=== PATIENT | female | born 1995 | race Caucasian/White ===

== ENCOUNTER 2022-07-28 09:14 | Inpatient (IN) | payer OTHER, SELFPAY ==
--- NOTE | ~2022-07-28 | CT_ITS ---
EXAMINATION: CT ABDOMEN AND PELVIS WITH CONTRAST CLINICAL INFORMATION: Right upper quadrant pain. Epigastric pain COMPARISON: Ultrasound abdomen performed earlier today TECHNIQUE: Multidetector volumetric images were obtained from the superior aspect of the liver through the pubic symphysis following administration 85 mL of Omnipaque 350 intravenous contrast. Sagittal and coronal reformatted images were obtained on the technologist's workstation. Oral contrast: No This CT examination was performed using dose optimization techniques as appropriate, variously including the following: *Automated exposure control *Adjustment of mA and/or kV according to patient size (this includes techniques or standardized protocols for targeted exams where dose is matched to indication/reason for exam; i.e. extremities or head) *Use of iterative reconstruction technique DLP: 751 mGy-cm FINDINGS: LUNG BASES: The visualized lung bases are unremarkable. LIVER, GALLBLADDER, AND BILIARY TREE: The liver is normal in size, shape, and and diffusely hypoattenuated. No focal hepatic lesion or biliary ductal dilatation is present. There is mild medial gallbladder wall thickening but ultrasound visualized echogenic calculi is not seen by CT. However there is some hyperdense area in the dependent segment of the gallbladder and may represent sludge or stones. It is best visualized on axial image 23/2 PANCREAS: Unremarkable. SPLEEN: Unremarkable. ADRENAL GLANDS: Unremarkable. KIDNEYS AND URETERS: The kidneys are normal in size, shape, and attenuation. No hydronephrosis, hydroureter, or calculi seen. No perinephric stranding. BLADDER: Unremarkable. GASTROINTESTINAL TRACT: There is scattered stool and gas seen throughout the colon without significant distention. The small bowel loops are normal caliber. Appendix is normal caliber ABDOMINAL WALL: No significant hernia is appreciated. LYMPH NODES: Normal. VASCULAR: Unremarkable. PELVIC VISCERA: Anteverted uterus appears unremarkable. There is no free fluid or adnexal mass. OSSEOUS STRUCTURES: No lytic or sclerotic process seen. CT/CT abdomen pelvis w IV con IMPRESSION: 1. Small radiopaque gallstone with mild wall thickening suspicious for cholecystitis. No pericholecystic fluid collection. 2. Mild hepatic steatosis Fleischner guidelines were followed.
--- NOTE | ~2022-07-28 | US_ITS ---
EXAMINATION: US ABDOMEN COMPLETE CLINICAL INFORMATION: Abdominal pain for 2 days. COMPARISON: Portable chest 03/03/2017 TECHNIQUE: Real-time imaging of the abdominal viscera. FINDINGS: PANCREAS: Obscured by bowel gas. ABDOMINAL AORTA: The proximal, mid, and distal segments are normal in caliber. INFERIOR VENA CAVA: Visualized portions are normal. LIVER: The liver is upper limits of normal size measuring 18.9 cm in length with increased hepatic parenchymal echogenicity suggesting diffuse hepatic steatosis. There is no focal hepatic parenchymal lesion or intrahepatic ductal dilatation. Doppler shows portal flow towards the liver. GALLBLADDER: Gallbladder is distended to 3.5 cm in diameter. The gallbladder wall is upper limits of normal, 3 mm. There is a stone in the neck of the gallbladder measuring 1.8 x 0.8 x 1.2 cm. There may be some sludge in the lumen is well. Sonographic Corley's sign is negative. There is no pericholecystic fluid. COMMON BILE DUCT: Normal in caliber measuring 0.5 cm in diameter. No visible ductal calculus. RIGHT KIDNEY: Normal. No hydronephrosis. No renal calculi or focal parenchymal lesions. The kidney measures 10.6 cm in maximum dimension. LEFT KIDNEY: Normal. No hydronephrosis. No renal calculi or focal parenchymal lesions. The kidney measures 11.1 cm in maximum dimension. SPLEEN: Normal. The spleen measures 9.9 cm in maximum dimension. FREE FLUID: None. US/US abdomen complete IMPRESSION: 1. Gallstone in neck of gallbladder. Gallbladder wall upper normal. No ductal dilatation. 2. Pancreas obscured by bowel gas. 3. Hepatic steatosis. 4. No hydronephrosis.
[2022-07-28 09:17] VITALS: BP 130/78; PULSE 94; RESP 18; TEMP 36.6; O2SAT 98; BMI 34.3
[2022-07-28 09:32] LABS: MANUAL DIFF FLAG NO
[2022-07-28 09:36] LABS: Basophils Percent Auto 0.1 % (0-2); Eosinophils Percent Auto 0.1 % (0-4); Hematocrit 38.6 % (37.0-47.0); Hemoglobin 13.2 g/dl (12.0-16.0); Imm Gran Abs Auto 0.04 X10*3/uL (0.00-0.03); Imm Gran Pct Auto 0.3 % (0.0-0.4); Lymphocytes Absolute Auto 2.4 X10*3/uL (1.2-4.9); Mean Corpuscular HGB Conc 34.2 g/dl (31.0-35.0); Mean Corpuscular Hemoglobin 28.6 pg (27.0-33.0); Mean Corpuscular Volume 83.7 fL (80.0-98.0); Mean Platelet Volume 10.1 fL (9.4-12.3); Monocytes Absolute Auto 0.9 X10*3/uL (0.1-1.2); Monocytes Percent Auto 6.8 % (2-11); Neutrophils Absolute Auto 10.1 x10*3/uL (2.0-8.3); Neutrophils Percent Auto 74.7 % (45-73); Platelet Count 288 X10*3/uL (160-400); Red Blood Count 4.61 X10*6/uL (4.20-5.50); Red Cell Distribution Width 12.3 % (11.0-16.0); White Blood Count 13.5 X10*3/uL (4.8-10.8)
[2022-07-28 09:49] LABS: Anion Gap 17 (12-20); Blood Urea Nitrogen 6 mg/dL (9-16); Calcium 9.5 mg/dL (8.4-10.2); Carbon Dioxide 21 mmol/L (22-29); Chloride 104 mmol/L (96-108); Estimated Glomerular Filt Rate > 60; Glucose Random 105 mg/dL (60-115); Potassium 3.8 mmol/L (3.3-5.1); Sodium 138 mmol/L (135-145)
[2022-07-28] MEDS: Ketorolac Tromethamine 30 MG/ML VIAL IVPUSH (10:20)
[2022-07-28] MEDS: ondansetron HCL 4 MG/2 ML VIAL IVPUSH (10:20)
[2022-07-28] MEDS: 0.9 % Sodium Chloride 1,000 ML 999 ML IVCONT (10:22)
[2022-07-28 10:34] LABS: Alanine Aminotransferase 33 U/L (0-31); Albumin Level 4.2 g/dL (3.5-5.0); Alkaline Phosphatase 71 U/L (39-117); Aspartate Amino Transferase 21 U/L (5-31); Bilirubin Direct 0.2 mg/dL (0.0-0.5); Bilirubin Total 0.6 mg/dL (0.0-1.0); HCG Quantitative < 2 mIU/mL; Lipase 30 U/L (8-78); Magnesium 1.9 mg/dL (1.6-2.6); Total Protein 7.5 g/dL (6.5-8.0)
[2022-07-28 10:52] LABS: Influenza A PCR NEGATIVE (Negative); Influenza B PCR NEGATIVE (Negative); Resp Syncy Virus RNA Qual PCR NEGATIVE (Negative); SARS COV2 PCR INHOUSE NEGATIVE (Negative)
--- NOTE | 2022-07-28 11:10 | ED.ABDPAIN ---
HPI - Abdominal Pain General Chief Complaint: Abdominal Pain Stated Complaint: abd pain Time Seen by Provider: 07/28/22 09:49 Source: patient and family Mode of arrival: ambulatory Limitations: no limitations History of Present Illness HPI narrative: 27yoF with a PMHx of IBS who is presenting to the ER with family at bedside with complaints of nausea/vomiting with epigastric abdominal pain radiating to her left side of her mid back since yesterday worse today. Reports she is unable to keep anything down. She reports this is not feel like her regular IBS. She denies any fevers, dizziness, neck pain/stiffness, sore throat, nasal congestion/rhinorrhea, cough, black or bloody emesis, chest pain or shortness of breath, dysuria, hematuria, abnormal vaginal discharge, black or bloody stools, recent travel or sick contacts, recent antibiotic usage or possible bad food exposures or others with similar symptoms or any other symptoms complaints or concerns at this time. MD elicited complaint: abdominal pain Pertinent past history: other (IBS) Onset (ago): day(s) (2) Pain Consistency: constant Location: epigastric Severity: mild Quality: aching Radiation: back Exacerbating factors: nothing Relieving factors: nothing Associated symptoms: nausea and vomiting Related Data Allergies Allergy/AdvReac Type Severity Reaction Status Date / Time No Known Allergies Allergy Unverified 02/16/20 18:23 [No Known Allergies*] Review of Systems Review of Systems Constitutional : No Fever, No Chills, No Night Sweats, No Fatigue, No Malaise Cardiovascular : No Chest Pain, No SOB Respiratory : No Cough, No Sputum, No Wheezing, No Dyspnea Gastrointestinal : + Nausea, + Vomiting, No Diarrhea, + abdominal Pain, No Hematochezia, No Melena Genitourinary : No irregular bleeding, No Dysuria, No Urinary Frequency, No Hematuria,No Urinary Incontinence, No Urgency, No Flank Pain Musculoskeletal : No joint pain, No Myalgias, No Joint Swelling Skin : No Skin Lesions, No rash Neuro : No Weakness, No Numbness, No Paresthesias, No Loss of Consciousness, No Dizziness, No Headache Heme/Lymph: No Lymphadenopathy Endocrine : No Temperature Intolerance Yes all other systems are reviewed and are negative [facility] Past Medical History Attestation statement: The following information was validated with the patient. Source: old records reviewed, obtained from family and nursing notes reviewed Medical History (Updated 07/28/22 @ 13:12 by Brain Roca MD) Acute cholecystitis Thyroid disease Social History Social History Smoked in Last 30 Days: No Advance Directives: No Advance Directives Information Provided: No Physical Exam ED Vital Signs: Vital Signs - 24 hr 07/28/22 09:17 Temperature 98 F Pulse Rate 94 Respiratory Rate 18 Blood Pressure 130/78 Pulse Oximetry 98 Oxygen Delivery Method Room Air BMI result Body Mass Index 34.3 Vital signs have been reviewed and all within normal limits Appearance: Alert. Oriented X3. No acute distress. Head: Normal external exam. Normocephalic. Eyes: PERRLA. EOMI. Conjunctiva and sclera normal. Eyelids normal. ENT: Pharynx normal. Uvula midline. Moist mucous membranes. No trismus noted. No drooling noted. No muffled voice noted. Neck: Normal inspection. Neck supple. FROM. No adenopathy. No meningeal signs. CVS: Normal heart rate and rhythm. Heart sound normal. No murmurs noted. Pulses normal throughout. Respiratory: No respiratory distress. Painless inspiration. Breath sounds normal. No wheezes/rales/rhonchi noted. Chest nontender. No accessory muscle usage noted or decreased air movement noted. Abdomen: Soft and tenderness palpation to the epigastric area with guarding. Nondistended. No rigidity. Bowel sounds normal in all 4 quadrants. No distention noted. No organomegaly noted. No visible injury noted. No rebound tenderness. Negative Rovsing sign. Negative obturator's sign. Negative psoas sign. Negative Corley sign. Back: No CVA tenderness. Full range of motion noted. Skin: Skin warm and dry. Normal skin color. Normal skin turgor. No rashes/lesions/lacerations noted. Extremities: Extremities exhibit normal range of motion. Extremities nontender. Neuro: Oriented X 3. No motor deficit. No sensory deficit. Reflexes normal. Normal steady gait. CN's II-XII intact bilaterally? Course Course Course Narrative: 9:20am - 27yoF with a PMHx of IBS who is presenting to the ER with family at bedside with complaints of nausea/vomiting with epigastric abdominal pain radiating to her left side of her mid back since yesterday worse today. Presentation consistent with acute epigastric abdominal pain. Differential diagnosis include gastroenteritis. No evidence of acute abdomen at this time. Well-appearing. Low suspicious for acute hepatobiliary disease including acute cholecystitis, acute pancreatitis, PUD, acute infectious processes such as pneumonia, hepatitis, pyelonephritis, atypical appendicitis, vascular catastrophe, bowel obstruction or viscous perforation. Presentation not consistent with other acute emergent causes of abdominal pain at this time. Plan: Labs, UA, COVID/RSV/flu swab an abdominal ultrasound. Provide symptomatic treatment with IV fluids, 4 mg of Zofran and 30 mg of IV Toradol re-evaluate. Reevaluation(s) Reevaluation #1: Labs reviewed - leukocytosis of 13,000. - carbon dioxide 21.- BUN 6. - ALT 33. - Patient negative for COVID/RSV/flu - serum quant negative. - otherwise all other labs are within normal limits. Awaiting UA and abdominal ultrasound will re-evaluate. Time: 11:16 Reevaluation #2: Ultrasound revealed gallstone in the neck of gallbladder. Otherwise no other acute processes. Therefore I discussed this patient with Dr. Roca general surgeon and he recommended a CT scan with IV contrast and CT scan suspicious for acute cholecystitis. Therefore at this time patient will be admitted to Dr. Roca for acute cholecystitis. Patient with at bedside understand agree this plan. Time: 13:12 Medical Decision Making Lab Data MDM Lab Attestation statement: I reviewed the patient's lab results. 07/28/22 09:27 07/28/22 09:27 Labs: Lab Results 07/28/22 07/28/22 07/28/22 Range/Units 09:27 09:27 09:55 WBC 13.5 H (4.8-10.8) X10*3/uL RBC 4.61 (4.20-5.50) X10*6/uL Hgb 13.2 (12.0-16.0) g/dl Hct 38.6 (37.0-47.0) % MCV 83.7 (80.0-98.0) fL MCH 28.6 (27.0-33.0) pg MCHC 34.2 (31.0-35.0) g/dl RDW 12.3 (11.0-16.0) % Plt Count 288 (160-400) X10*3/uL MPV 10.1 (9.4-12.3) fL Immature Gran % (Auto) 0.3 (0.0-0.4) % Neut % (Auto) 74.7 H (45-73) % Lymph % (Auto) 18.0 L (20-40) % [place] % (Auto) 6.8 (2-11) % Eos % (Auto) 0.1 (0-4) % Baso % (Auto) 0.1 (0-2) % Lymph # (Auto) 2.4 (1.2-4.9) X10*3/uL [place] # (Auto) 0.9 (0.1-1.2) X10*3/uL Eos # (Auto) 0.0 (0.0-0.4) X10*3/uL Baso # (Auto) 0.0 (0.0-0.2) X10*3/uL Abs Immat Gran (auto) 0.04 H (0.00-0.03) X10*3/uL Absolute Neuts (auto) 10.1 H (2.0-8.3) x10*3/uL Absolute Nucleated RBC 0.000 (0.0-0.012) X10*3/uL Nucleated RBC % (auto) 0.0 (0.0-0.2) /100WBC Sodium 138 (135-145) mmol/L Potassium 3.8 (3.3-5.1) mmol/L Chloride 104 (96-108) mmol/L Carbon Dioxide 21 L (22-29) mmol/L Anion Gap 17 (12-20) BUN 6 L (9-16) mg/dL Creatinine 0.68 (0.5-1.4) mg/dL Estim Creat Clear Calc 138.0 Estimated GFR > 60 Random Glucose 105 (60-115) mg/dL Calcium 9.5 (8.4-10.2) mg/dL Magnesium 1.9 (1.6-2.6) mg/dL Total Bilirubin 0.6 (0.0-1.0) mg/dL Direct Bilirubin 0.2 (0.0-0.5) mg/dL AST 21 (5-31) U/L ALT 33 H (0-31) U/L Alkaline Phosphatase 71 (39-117) U/L Total Protein 7.5 (6.5-8.0) g/dL Albumin 4.2 (3.5-5.0) g/dL Lipase 30 (8-78) U/L Beta HCG, Quant < 2 mIU/mL Urine Color Urine Appearance Urine pH (5.0-9.0) Ur Specific [place] (1.005-1.025) Urine Protein (Neg-Trace) mg/dL Urine Glucose (UA) (Negative) mg/dL Urine Ketones (Negative) mg/dL Urine Blood (Negative) Urine Nitrite (Negative) Ur Leukocyte Esterase (Negative) Influenza Type A (PCR) NEGATIVE (Negative) Influenza Type B (PCR) NEGATIVE (Negative) RSV RNA Qual (PCR) NEGATIVE (Negative) SARS-CoV-2 RNA (RT-PCR) NEGATIVE (Negative) 07/28/22 Range/Units 11:29 WBC (4.8-10.8) X10*3/uL RBC (4.20-5.50) X10*6/uL Hgb (12.0-16.0) g/dl Hct (37.0-47.0) % MCV (80.0-98.0) fL MCH (27.0-33.0) pg MCHC (31.0-35.0) g/dl RDW (11.0-16.0) % Plt Count (160-400) X10*3/uL MPV (9.4-12.3) fL Immature Gran % (Auto) (0.0-0.4) % Neut % (Auto) (45-73) % Lymph % (Auto) (20-40) % [place] % (Auto) (2-11) % Eos % (Auto) (0-4) % Baso % (Auto) (0-2) % Lymph # (Auto) (1.2-4.9) X10*3/uL [place] # (Auto) (0.1-1.2) X10*3/uL Eos # (Auto) (0.0-0.4) X10*3/uL Baso # (Auto) (0.0-0.2) X10*3/uL Abs Immat Gran (auto) (0.00-0.03) X10*3/uL Absolute Neuts (auto) (2.0-8.3) x10*3/uL Absolute Nucleated RBC (0.0-0.012) X10*3/uL Nucleated RBC % (auto) (0.0-0.2) /100WBC Sodium (135-145) mmol/L Potassium (3.3-5.1) mmol/L Chloride (96-108) mmol/L Carbon Dioxide (22-29) mmol/L Anion Gap (12-20) BUN (9-16) mg/dL Creatinine (0.5-1.4) mg/dL Estim Creat Clear Calc Estimated GFR Random Glucose (60-115) mg/dL Calcium (8.4-10.2) mg/dL Magnesium (1.6-2.6) mg/dL Total Bilirubin (0.0-1.0) mg/dL Direct Bilirubin (0.0-0.5) mg/dL AST (5-31) U/L ALT (0-31) U/L Alkaline Phosphatase (39-117) U/L Total Protein (6.5-8.0) g/dL Albumin (3.5-5.0) g/dL Lipase (8-78) U/L Beta HCG, Quant mIU/mL Urine Color Yellow Urine Appearance Clear Urine pH 6.5 (5.0-9.0) Ur Specific [place] 1.010 (1.005-1.025) Urine Protein Negative (Neg-Trace) mg/dL Urine Glucose (UA) Negative (Negative) mg/dL Urine Ketones Trace (Negative) mg/dL Urine Blood Negative (Negative) Urine Nitrite Negative (Negative) Ur Leukocyte Esterase Negative (Negative) Influenza Type A (PCR) (Negative) Influenza Type B (PCR) (Negative) RSV RNA Qual (PCR) (Negative) SARS-CoV-2 RNA (RT-PCR) (Negative) Independent Interpretation I performed an independent interpretation of an: Ultrasound (I reviewed myself and discussed with patient she understands) and CT Scan (CT scan results reviewed by myself and discussed with patient) Radiology Impression Discussion of test interpretation with radiology: I have reviewed the radiologist's reading. (Discussed the radiology reading with patient) Radiologist Impression: FINDINGS: PANCREAS: Obscured by bowel gas. ABDOMINAL AORTA: The proximal, mid, and distal segments are normal in caliber. INFERIOR VENA CAVA: Visualized portions are normal. LIVER: The liver is upper limits of normal size measuring 18.9 cm in length with increased hepatic parenchymal echogenicity suggesting diffuse hepatic steatosis. There is no focal hepatic parenchymal lesion or intrahepatic ductal dilatation. Doppler shows portal flow towards the liver. GALLBLADDER: Gallbladder is distended to 3.5 cm in diameter. The gallbladder wall is upper limits of normal, 3 mm. There is a stone in the neck of the gallbladder measuring 1.8 x 0.8 x 1.2 cm. There may be some sludge in the lumen is well. Sonographic Corley's sign is negative. There is no pericholecystic fluid. COMMON BILE DUCT: Normal in caliber measuring 0.5 cm in diameter. No visible ductal calculus. RIGHT KIDNEY: Normal. No hydronephrosis. No renal calculi or focal parenchymal lesions. The kidney measures 10.6 cm in maximum dimension. LEFT KIDNEY: Normal. No hydronephrosis. No renal calculi or focal parenchymal lesions. The kidney measures 11.1 cm in maximum dimension. SPLEEN: Normal. The spleen measures 9.9 cm in maximum dimension. FREE FLUID: None. US/US abdomen complete IMPRESSION: 1. Gallstone in neck of gallbladder. Gallbladder wall upper normal. No ductal dilatation. 2. Pancreas obscured by bowel gas. 3. Hepatic steatosis. 4. No hydronephrosis. FINDINGS: LUNG BASES: The visualized lung bases are unremarkable.? LIVER, GALLBLADDER, AND BILIARY TREE: The liver is normal in size, shape, and and diffusely hypoattenuated. No focal hepatic lesion or biliary ductal dilatation is present. There is mild medial gallbladder wall thickening but ultrasound visualized echogenic calculi is not seen by CT. However there is some hyperdense area in the dependent segment of the gallbladder and may represent sludge or stones. It is best visualized on axial image 23/2 PANCREAS: Unremarkable.? SPLEEN: Unremarkable.? ADRENAL GLANDS: Unremarkable.? KIDNEYS AND URETERS: The kidneys are normal in size, shape, and attenuation. No hydronephrosis, hydroureter, or calculi seen. No perinephric stranding. ? BLADDER: Unremarkable.? GASTROINTESTINAL TRACT: There is scattered stool and gas seen throughout the colon without significant distention. The small bowel loops are normal caliber. Appendix is normal caliber? ABDOMINAL WALL: No significant hernia is appreciated.? LYMPH NODES: Normal. VASCULAR: Unremarkable. PELVIC VISCERA: Anteverted uterus appears unremarkable. There is no free fluid or adnexal mass.? OSSEOUS STRUCTURES: No lytic or sclerotic process seen.? CT/CT abdomen pelvis w IV con IMPRESSION: 1.? Small radiopaque gallstone with mild wall thickening suspicious for cholecystitis. No pericholecystic fluid collection. 2.? Mild hepatic steatosis ? Fleischner guidelines were followed. Independent Historian Clinical information obtained from an independent historian. History obtained from or confirmed by: Other (Family at bedside) Prescription Management I considered prescription management with: Pain Medication Chronic Conditions Patient?s care impacted by: Other (IBS) Medications Administered Discontinued Medications Generic Name Dose Route Start Last Admin Trade Name Freq PRN Reason Stop Dose Admin Sodium Chloride 1,000 mls @ 999 mls/hr 07/28/22 10:00 07/28/22 10:22 Ns IVCONT 07/28/22 11:00 999 mls/hr .Q1H1M SUPA Administration Iohexol 85 ml 07/28/22 11:42 07/28/22 11:43 Iohexol 350 Mg/Ml 100 Ml Infus..Btl IV 07/28/22 11:43 85 ml ONCE ONE Administration Ketorolac Tromethamine 30 mg 07/28/22 09:56 07/28/22 10:20 Ketorolac Tromethamine 30 Mg/Ml Vial IVPUSH 07/28/22 09:57 30 mg ONCE ONE Administration Ondansetron HCl 4 mg 07/28/22 09:50 07/28/22 10:20 Ondansetron Hcl 4 Mg/2 Ml Vial IVPUSH 07/28/22 09:51 4 mg ONCE ONE Administration Discharge Plan Discharge Clinical Impression: Acute cholecystitis Patient Disposition: Admitted As Inpatient
[2022-07-28] MEDS: iohexoL 350 MG/ML 100 ML INFUS..BTL 85 ML IV (11:43)
[2022-07-28 11:50] LABS: Appearance Urine Clear; Color Urine Yellow; Glucose Urine UA Negative (Negative); Leukocyte Esterase Urine Negative (Negative); Nitrite Urine Negative (Negative); PH 6.5 (5.0-9.0); Urine Blood Negative (Negative); Urine Ketones Trace mg/dL (Negative); Urine Protein Negative (Neg-Trace)
--- NOTE | 2022-07-28 13:08 | PM.HPGS ---
History of Present Illness History of Present Illness Date of Service: 07/30/22 Chief complaint: Acute Cholecystitis Narrative: Nguyen Travis is a 27 year old female who came to the ED early this morning for abdominal pain. She says this started arounf 3 pm afternoon. She describes this as being in the epigastric area. She says she had a few episodes of vomitting until last night. Her last episode of vomitting was at 11 pm. She says she actually feels much better today. She still describes mild epigatric pain. Review of Systems Constitutional: Constitutional: Denies chills and Denies fever(s) Cardiovascular: Cardiovascular: Denies chest pain, Denies dyspnea and Denies dyspnea on exertion Respiratory: Respiratory: Denies cough, Denies dyspnea and Denies dyspnea on exertion Gastrointestinal: Gastrointestinal: Denies hematochezia and Denies change in bowel habits Genitourinary: Genitourinary: Denies hematuria Musculoskeletal: Musculoskeletal: Denies back pain and Denies limited range of motion Neurologic: Denies focal weakness and Denies convulsions Psychiatric: Psychiatric: Denies depression and Denies mood swings [facility] Past Medical History Medical History Acute cholecystitis Thyroid disease Social History Social History Household Members: Family Housing: Apartment Do you presently have visiting nurse or other home services: No Alcohol intake: never Patient Tobacco Use Status: Never used Tobacco Smoked in Last 30 Days: No Use of substances other than those prescribed or required for medical reasons: No Currently Displaying Signs/Symptoms of Drug Intoxication Withdrawal: No Have you been hit, kicked, punched, or otherwise hurt by someone within the past year? If so, by whom?: No Do you feel safe in your current relationship?: Yes Is there a partner from a previous relationship who is making you feel unsafe now?: No Are you made to feel afraid or neglected: No Are you DNR?: No Advance Directives: No Advance Directives Information Provided: No Do you have thoughts of harming others: None Do you have a plan to hurt others: No Plan Recently lost weight without trying: No Eating poorly because of decreased appetite: No Nutrition Risks: No Nutritional Risk Patient : No : No Poor oral hygiene: No service: No Current occupational status: employed Meds Allergies Allergy/AdvReac Type Severity Reaction Status Date / Time No Known Allergies Allergy Verified 07/29/22 08:07 [No Known Allergies*] Active Medications: Current Medications Sodium Chloride (Ns) 1,000 mls @ 80 mls/hr IVCONT .[id number] [facility] Morphine Sulfate (Morphine Sulfate 4 Mg/Ml Cartridge) 3 mg IVPUSH Q3H PRN; Protocol PRN Reason: Pain, Severe (Pain Scale 7-10) Oxycodone HCl (Oxycodone Hcl Immed Release 5 Mg Tablet) 5 mg PO Q6H PRN PRN Reason: Pain, Severe (Pain Scale 7-10) Sodium Chloride (0.9 % Sodium Chloride Flush 3 Ml Syringe) 3 ml IVFLUSH QSHIFT [facility] Home Medications Medication Instructions Recorded Confirmed Last Taken Type drospirenone 3 mg-ethinyl 1 tab PO DAILY 07/28/22 07/28/22 07/27/22 History estradiol 0.02 mg tablet (Brie (28)) levothyroxine 88 mcg tablet 88 mcg PO DAILY 07/28/22 07/28/22 07/27/22 History spironolactone 100 mg tablet 1 tab PO DAILY 07/28/22 07/28/22 07/27/22 History Physical Exam Vital Signs: Vital Signs: Last Vital Signs Temp 98 F 07/28/22 09:17 Pulse 94 07/28/22 09:17 Resp 18 07/28/22 09:17 BP 130/78 07/28/22 09:17 Pulse Ox 98 07/28/22 09:17 O2 Del Method 07/28/22 09:17 BMI result Body Mass Index 34.3 Const: General: comfortable and no acute distress Orientation/consciousness: patient oriented x3 Eyes: Other: nonicteric Neck: Neck: Yes no lymphadenopathy Resp: Auscultation: clear to auscultation bilaterally Cardio: Rhythm: regular rhythm GI: Palpation (GI): Soft to palpation, Tenderness to palpation present (GI) (mild tenderness on epig area, no Corley's sign at this time) and no guarding Neuro: General: patient oriented x3 Results Results Labs: Short CBC 07/28/22 Range/Units 09:27 WBC 13.5 H (4.8-10.8) X10*3/uL Hgb 13.2 (12.0-16.0) g/dl Hct 38.6 (37.0-47.0) % Plt Count 288 (160-400) X10*3/uL BMP 07/28/22 09:27 Sodium 138 Potassium 3.8 Chloride 104 Carbon Dioxide 21 L BUN 6 L Creatinine 0.68 Calcium 9.5 Liver Function 07/28/22 Range/Units 09:27 Total Bilirubin 0.6 (0.0-1.0) mg/dL Direct Bilirubin 0.2 (0.0-0.5) mg/dL AST 21 (5-31) U/L ALT 33 H (0-31) U/L Alkaline Phosphatase 71 (39-117) U/L Albumin 4.2 (3.5-5.0) g/dL Urine 07/28/22 Range/Units 11:29 Urine Color Yellow Urine Appearance Clear Urine pH 6.5 (5.0-9.0) Ur Specific [place] 1.010 (1.005-1.025) Urine Protein Negative (Neg-Trace) mg/dL Urine Glucose (UA) Negative (Negative) mg/dL Assessment and Plan (1) Acute cholecystitis: Status: Acute I have reviewed her imaging studies, both US and CT and this shows mild thickening of the GB wall c/w acute cholecystitis. Her US shows a stone in the neck. She does feel much better but I recommended admission. I reviewed with her the technique of laparoscopic cholecystectomy possible open as treatment. I explained the risks including but not limited to bleeding, infections, injury to the bowel, liver, bile duct, retained stones, bile leak, as well as the benefits and alternatives. She understands, but does have a 6 month old baby at home, so she will decide in the morning. Time Spent With Patient Time: Total time managing care of this patient today ____ minutes. Quality Stroke Does the patient have a stroke diagnosis?: No VTE Prior VTE?: No VTE Risk Level:: Medical - low VTE Device Contraindication: N/A - Device Ordered VTE Drug Contraindication: Treatment Not Indicated Procedures Date of Service Date of Service: 07/28/22
[2022-07-28] MEDS: Piperacillin Sodium/Tazobactam 3.375 GM in 0.9 % Sodium Chloride 50 ML IV ×2 (14:40→20:24)
[2022-07-28] MEDS: 0.9 % Sodium Chloride 1,000 ML 80 ML IVCONT (14:44)
--- NOTE | 2022-07-28 14:51 | PHA.MEDREC ---
Pharmacy Consult ? Medication Reconciliation Pharmacy has completed the medication reconciliation.
[2022-07-28 14:55] VITALS: BP 104/62; PULSE 67; RESP 16; O2SAT 100
[2022-07-28] MEDS: oxyCODONE HCl Immed Release 5 MG TABLET PO ×2 (16:08→23:37)
[2022-07-28 17:22] VITALS: BP 132/65; PULSE 71; RESP 20; TEMP 36.7; O2SAT 99
[2022-07-28 17:59] VITALS: BMI 35.2
[2022-07-28 19:37] VITALS: BP 114/66; PULSE 60; RESP 18; TEMP 36.2; O2SAT 98
[2022-07-28] MEDS: 0.9 % Sodium Chloride Flush 3 ML SYRINGE IVFLUSH (20:20)
[2022-07-28] MEDS: Morphine Sulfate 4 MG/ML CARTRIDGE 3 MG IVPUSH (20:21)
[2022-07-29] VITALS (14 sets, daily range): BP systolic 107–153; BP diastolic 60–99; PULSE 67–91; RESP 15–18; TEMP 36.3–36.9; O2SAT 96–100
[2022-07-29] MEDS: Piperacillin Sodium/Tazobactam 3.375 GM in 0.9 % Sodium Chloride 50 ML IV (01:23)
[2022-07-29] MEDS: Morphine Sulfate 4 MG/ML CARTRIDGE 3 MG IVPUSH ×3 (02:48→20:53)
[2022-07-29] MEDS: ondansetron HCL 4 MG/2 ML VIAL IVPUSH ×2 (03:34→11:28)
[2022-07-29] MEDS: 0.9 % Sodium Chloride 1,000 ML 80 ML IVCONT ×2 (03:37→20:54)
[2022-07-29] MEDS: oxyCODONE HCl Immed Release 5 MG TABLET PO (05:37)
[2022-07-29] MEDS: Levothyroxine Sodium 88 MCG TABLET PO (05:37)
[2022-07-29 06:26] LABS: Hematocrit 35.5 % (37.0-47.0); Mean Corpuscular HGB Conc 33.8 g/dl (31.0-35.0); Mean Corpuscular Hemoglobin 29.5 pg (27.0-33.0); Mean Corpuscular Volume 87.2 fL (80.0-98.0); Mean Platelet Volume 10.7 fL (9.4-12.3); Platelet Count 234 X10*3/uL (160-400); Red Blood Count 4.07 X10*6/uL (4.20-5.50); Red Cell Distribution Width 12.5 % (11.0-16.0); White Blood Count 8.3 X10*3/uL (4.8-10.8)
[2022-07-29 06:47] LABS: Alanine Aminotransferase 65 U/L (0-31); Albumin Level 3.6 g/dL (3.5-5.0); Alkaline Phosphatase 71 U/L (39-117); Aspartate Amino Transferase 66 U/L (5-31); Bilirubin Direct 0.3 mg/dL (0.0-0.5); Bilirubin Total 0.9 mg/dL (0.0-1.0); Total Protein 6.4 g/dL (6.5-8.0)
--- NOTE | 2022-07-29 07:38 | PM.EVENT ---
Event Note Date of Service: 07/29/22 Event Note: feels better denies significant pain she says that she wants to go ahead with cholecystectomy I reviewed the technique of laparoscopic cholecystectomy and possible open cholecystectomy I explained the risks including but not limited to bleeding, infections, injury to other intra-abdominal organs including bowel, liver, bile ducts; bile leak, in stones, as well as the benefits and alternatives she understands that her perioperative risks may be a little higher in view of her high BMI she says she will proceed LFTs within normal CT scan does not suggest CBD stone Time Spent With Patient Time: Total time managing care of this patient today ____ minutes.
[2022-07-29 07:45] LABS: Glucose, Whole Blood 94 mg/dL (60-115)
--- NOTE | 2022-07-29 09:10 | HO.ANESPROP2 ---
HPI - Anesthesia Eval Consult details Narrative: for lap cholecystectomy PMFSH Active Problems Active Problems: All Active Problems (Updated 07/28/22 @ 13:12 by Brain Roca MD) Acute cholecystitis (Acute) Thyroid disease (Acute) IBS (irritable bowel syndrome) (Acute) Past Medical History Medical History Acute cholecystitis Thyroid disease Family History Family history of problems with anesthesia: No Surgical History History of Problems with Anesthesia: No Social History Social History Household Members: Family Housing: Apartment Do you presently have visiting nurse or other home services: No Alcohol intake: never Patient Tobacco Use Status: Never used Tobacco Smoked in Last 30 Days: No Use of substances other than those prescribed or required for medical reasons: No Currently Displaying Signs/Symptoms of Drug Intoxication Withdrawal: No Have you been hit, kicked, punched, or otherwise hurt by someone within the past year? If so, by whom?: No Do you feel safe in your current relationship?: Yes Is there a partner from a previous relationship who is making you feel unsafe now?: No Are you made to feel afraid or neglected: No Are you DNR?: No Advance Directives: No Advance Directives Information Provided: No Do you have thoughts of harming others: None Do you have a plan to hurt others: No Plan Recently lost weight without trying: No Eating poorly because of decreased appetite: No Nutrition Risks: No Nutritional Risk Patient : No : No Poor oral hygiene: No Meds Allergies Allergy/AdvReac Type Severity Reaction Status Date / Time No Known Allergies Allergy Verified 07/29/22 08:07 [No Known Allergies*] Active Medications: Current Medications Sodium Chloride (Ns) 1,000 mls @ 80 mls/hr IVCONT .[id number] REPLACED BY [facility] Last Admin: 07/29/22 03:37 Dose: 80 mls/hr Piperacillin Sod/Tazobactam (Sod 3.375 gm/ Sodium Chloride) 50 mls @ 100 mls/hr IV Q6H REPLACED BY [facility] Last Admin: 07/29/22 08:34 Dose: Not Given Levothyroxine Sodium (Levothyroxine Sodium 88 Mcg Tablet) 88 mcg PO DAILY@0600 REPLACED BY [facility] Last Admin: 07/29/22 05:37 Dose: 88 mcg Morphine Sulfate (Morphine Sulfate 4 Mg/Ml Cartridge) 3 mg IVPUSH Q3H PRN; Protocol PRN Reason: Pain, Severe (Pain Scale 7-10) Last Admin: 07/29/22 02:48 Dose: 3 mg Ondansetron HCl (Ondansetron Hcl 4 Mg/2 Ml Vial) 4 mg IVPUSH Q6H PRN PRN Reason: Nausea and Vomiting Last Admin: 07/29/22 03:34 Dose: 4 mg Oxycodone HCl (Oxycodone Hcl Immed Release 5 Mg Tablet) 5 mg PO Q6H PRN PRN Reason: Pain, Severe (Pain Scale 7-10) Last Admin: 07/29/22 05:37 Dose: 5 mg Pharmacy Consult (Consult Rx Perform Med Rec) 1 each MISCELLANE ONCE PRN PRN Reason: Consult order Sodium Chloride (0.9 % Sodium Chloride Flush 3 Ml Syringe) 3 ml IVFLUSH [facility] Last Admin: 07/29/22 08:34 Dose: Not Given Home Medications Medication Instructions Recorded Confirmed Last Taken Type drospirenone 3 mg-ethinyl 1 tab PO DAILY 07/28/22 07/28/22 07/27/22 History estradiol 0.02 mg tablet (Brie (28)) levothyroxine 88 mcg tablet 88 mcg PO DAILY 07/28/22 07/28/22 07/27/22 History spironolactone 100 mg tablet 1 tab PO DAILY 07/28/22 07/28/22 07/27/22 History Exam Exam Date and Time: July 29, 2022 0910 Height,Weight and Vital Signs: Height 5 ft 4 in Weight 93 kg Last Vital Signs Temp 98.5 F 07/29/22 08:00 Pulse 79 07/29/22 08:00 Resp 18 07/29/22 08:00 BP 143/99 H 07/29/22 08:00 Pulse Ox 100 07/29/22 08:00 O2 Del Method 07/29/22 08:00 Pertinent Lab Results Pertinent Lab Results: Laboratory Tests 07/28/22 07/28/22 07/28/22 09:27 09:27 09:55 WBC 13.5 H RBC 4.61 Hgb 13.2 Hct 38.6 MCV 83.7 MCH 28.6 MCHC 34.2 RDW 12.3 Plt Count 288 MPV 10.1 Immature Gran % (Auto) 0.3 Neut % (Auto) 74.7 H Lymph % (Auto) 18.0 L [place] % (Auto) 6.8 Eos % (Auto) 0.1 Baso % (Auto) 0.1 Lymph # (Auto) 2.4 [place] # (Auto) 0.9 Eos # (Auto) 0.0 Baso # (Auto) 0.0 Abs Immat Gran (auto) 0.04 H Absolute Neuts (auto) 10.1 H Absolute Nucleated RBC 0.000 Nucleated RBC % (auto) 0.0 Sodium 138 Potassium 3.8 Chloride 104 Carbon Dioxide 21 L Anion Gap 17 BUN 6 L Creatinine 0.68 Estim Creat Clear Calc 138.0 Estimated GFR > 60 POC Glucose Random Glucose 105 Calcium 9.5 Magnesium 1.9 Total Bilirubin 0.6 Direct Bilirubin 0.2 AST 21 ALT 33 H Alkaline Phosphatase 71 Total Protein 7.5 Albumin 4.2 Lipase 30 Beta HCG, Quant < 2 Urine Color Urine Appearance Urine pH Ur Specific [place] Urine Protein Urine Glucose (UA) Urine Ketones Urine Blood Urine Nitrite Ur Leukocyte Esterase Influenza Type A (PCR) NEGATIVE Influenza Type B (PCR) NEGATIVE RSV RNA Qual (PCR) NEGATIVE SARS-CoV-2 RNA (RT-PCR) NEGATIVE 07/28/22 07/29/22 07/29/22 11:29 05:36 05:36 WBC 8.3 RBC 4.07 L Hgb 12.0 Hct 35.5 L MCV 87.2 MCH 29.5 MCHC 33.8 RDW 12.5 Plt Count 234 MPV 10.7 Immature Gran % (Auto) Neut % (Auto) Lymph % (Auto) [place] % (Auto) Eos % (Auto) Baso % (Auto) Lymph # (Auto) [place] # (Auto) Eos # (Auto) Baso # (Auto) Abs Immat Gran (auto) Absolute Neuts (auto) Absolute Nucleated RBC 0.000 Nucleated RBC % (auto) 0.0 Sodium Potassium Chloride Carbon Dioxide Anion Gap BUN Creatinine Estim Creat Clear Calc Estimated GFR POC Glucose Random Glucose Calcium Magnesium Total Bilirubin 0.9 Direct Bilirubin 0.3 AST 66 H ALT 65 H Alkaline Phosphatase 71 Total Protein 6.4 L Albumin 3.6 Lipase Beta HCG, Quant Urine Color Yellow Urine Appearance Clear Urine pH 6.5 Ur Specific [place] 1.010 Urine Protein Negative Urine Glucose (UA) Negative Urine Ketones Trace Urine Blood Negative Urine Nitrite Negative Ur Leukocyte Esterase Negative Influenza Type A (PCR) Influenza Type B (PCR) RSV RNA Qual (PCR) SARS-CoV-2 RNA (RT-PCR) 07/29/22 07:20 WBC RBC Hgb Hct MCV MCH MCHC RDW Plt Count MPV Immature Gran % (Auto) Neut % (Auto) Lymph % (Auto) [place] % (Auto) Eos % (Auto) Baso % (Auto) Lymph # (Auto) [place] # (Auto) Eos # (Auto) Baso # (Auto) Abs Immat Gran (auto) Absolute Neuts (auto) Absolute Nucleated RBC Nucleated RBC % (auto) Sodium Potassium Chloride Carbon Dioxide Anion Gap BUN Creatinine Estim Creat Clear Calc Estimated GFR POC Glucose 94 Random Glucose Calcium Magnesium Total Bilirubin Direct Bilirubin AST ALT Alkaline Phosphatase Total Protein Albumin Lipase Beta HCG, Quant Urine Color Urine Appearance Urine pH Ur Specific [place] Urine Protein Urine Glucose (UA) Urine Ketones Urine Blood Urine Nitrite Ur Leukocyte Esterase Influenza Type A (PCR) Influenza Type B (PCR) RSV RNA Qual (PCR) SARS-CoV-2 RNA (RT-PCR) Airway Mallampati Class: II Neck ROM: Full Heart: rrr Lungs: cta Assessment and Plan Assessment Anesthesia Assessment: Anesthesia Plan Discussed Final Anesthetic Review Family History of Problems with Anesthesia: No History of Problems with Anesthesia: No NPO: Yes ASA Class: II Final Preanesthetic Review: No Changes in Pt Med Stat, Meds/Allgs Chart Reviewed, Consent Obtained/Reviewed and Anes Risks/Benef Reviewed Patient Risk: Low Procedure Risk: Low Anesthetic Plan Anesthetic Plan: GA Disposition: Standard PACU
--- NOTE | 2022-07-29 10:40 | P.OP_ITS ---
Operative Note Operative Note Date of Service: 07/29/22 Narrative: Preop diagnosis: Acute calculous cholecystitis Postop diagnosis: The same, with hydrops Procedure: Laparoscopic cholecystectomy Surgeon: Brain Roca MD high [employer] assistant football coach: ALEA Villarreal The patient is a 27-year-old female who was admitted via the ER yesterday because of epigastric pain and right upper quadrant tenderness.. Her imaging studies were consistent with acute cholecystitis. She wanted to proceed with laparoscopic cholecystectomy. She understood the technique of breath the procedure as well as the risks, benefits, and alternatives. She was brought to the operating room. She was placed supine under general anesthesia via endotracheal tube. The abdomen was prepped and draped in the usual sterile fashion. A surgical time-out was done. The patient received Cefotan 2 g IV preoperatively. I made a short supraumbilical incision using a blade 15. This carried down through the full-thickness of the skin subcutaneous fat down to the fascia. it is noteworthy the patient had a very thick subcutaneous fat in view of her morbid obesity The fascia was exposed. This was incised the peritoneum was entered. Through this incision a Josey port was introduced. Pneumoperitoneum was introduced to a pressure of 15 mm hg. From here on the rest of the procedure was done under vision with the laparoscope With laparoscopic visualization using a flat 10 mm scope, proceeded to insert a 5/12 mm to epigastric area below the subcostal margin. Two 5 mm ports introduced a small incision below the subcostal margin along the anterior axillary line and the midclavicular line. Graspers were placed through these working ports. The patient was placed in head-up and [id number] position. The abductor seen as was noted to be very markedly distended, appearing hydropic, with adherent stoma on the anterior wall. I to carefully bluntly dissect this omental fat off of the anterior wall of the gallbladder using the [place] dissector until was able to she good and adequate exposure of the anterior wall. With then proceeded to aspirate the contents in aspirating needle through the 5 mml port. Clear fluid was aspirated consistent with gallbladder hydrops. this allowed decompression of the gallbladder. We were therefore able to apply grasper towards the fundus. This was used to retract the gallbladder cephalad. However, the patient had a very large liver so our retraction was limited as this was on the underside of the liver edge. With this retraction, with noticed a little bit of tearing of the capsule as well at the falciform ligament. This further limited are traction. I was able to apply a grasper towards the pouch of the gallbladder to retract this laterally. Exposure was very difficult in view of the patient's morbid obesity. Retraction was limited on both cephalad and lateral direction because of angle with the very thick subcutaneous fat. We had to insert an OG tube to attempt to decompress the stomach and hope fully achieve a little more exposure. We also had to switch to a 30 degree scope to allow better visualization. We had to do more blunt dissection of the neck of the gallbladder to allow as to bring this out in the field. We had to release all these thick, fibrous and indurated adhesions using blunt dissection with the Ting dissector. This part of the procedure took and extended period of time. We had encountered bl eeding from the indurated tissue periodically. After a prolonged care for dissection, it appeared that I had adequate retraction of the the gallbladder. We continued to clear this indurated fat us ing the [place] dissector until was able to clearly see a cystic duct. I was able to confirm its confluence with the neck of the gallbladder. This allowed as a critical view of the passes thick triangle as well. It appeared that there were no other tubular structures in the area although there were still a lot of indurated tissue. I applied clips on the cystic duct with 2 clips being applied distally. The cystic duct was transected been clips with Endo scissors. We had to do further dissection with the [place] dissector until the as were able to clearly visualize the cystic artery. Her applied and this was some checked between clips as well using Endo scissors. This had been doubly clipped distally We had to proceed slowly along the hilum because of the markedly indurated t issue. We had to use the hook 3 to divide this thickened and indurated tissue all the way until we reached the interface of the gallbladder wall and the liver bed. The gallbladder was very edematous and there were poor planes as well. We therefore proceeded slowly to separate the gallbladder from the liver bed using a combination of electrocautery with the L hook as well as the spatula, and with blunt dissection using the tip of the spatula. Again, this part of the procedure took an extended period of time because of the difficulty with angles the patient habitus. There also was note of periodic bleeding from the edges of the divided peritoneal layer of the gallbladder due to the acute inflammation. Eventually we were able to reach the fundus and completely separate the gallbladder from the liver bed. The gallbladder was retrieved through an endobag through the umbilical incision. I reinserted all ports and re- insufflated. I copiously irrigated the area of dissection and suctioned out the irrigant fluid. There was note of good hemostasis without any evidence of any bile leak. I examined all 4 quadrants. There was no evidence of any other pathology nor any bowel injury. There was note of that tear along the from ligament and we applied Surgicel on this although the appeared to be hemostatic. Once hemostasis was confirmed, I desufflated the port sites. I removed all ports under vision with laparoscope. The umbilical port was removed last. The fascia of the umbilical incision was closed with [id number] Dexon 0 stitch. Closure was achieved on all incisions thing Dexon 4-0 subcuticular running sutures. All incisions were infiltrated with Marcaine 0.5% for postop TONY. Stress even dressings were applied. The procedure was completed The patient tolerated procedure well. There were no immediate complications. Initial and final counts of sponges and instruments were correct. Estimated blood loss was about 100 cc. The patient was extubated without difficulty and transferred to the recovery room with stable vital signs. .
--- NOTE | 2022-07-29 11:21 | MHC.CM.PN ---
PATIENT IS FULLY INDEPENDENT NO DME OR [facility] FAMILY WILL TRANSPORT HOME AT DC. NEW HCP TO BE COMPLETED AND PLACED IN CHART, WELL CAREPORT. CM FOLLOWING FOR ANY DC NEEDS.
[2022-07-29] MEDS: Ketorolac Tromethamine 15 MG/ML VIAL IVPUSH (12:03)
[2022-07-29] MEDS: Acetaminophen 1,000 MG/100 ML PIGGYBACK 400 MG IV (12:07)
--- NOTE | 2022-07-29 12:18 | P.CDIM_ITS ---
PROVIDER RESPONSE TEXT: To clarify, the appropriate diagnosis supported by the clinical indicators: Obesity Due to excess calories QUERY TEXT: PHYSICIAN'S DOCUMENTATION REQUEST Date of Query: 07/29/2022 08:11 AM EST Patient Name: Nguyen Travis Admit Date: 07/28/2022 Dear Brain Roca, A review of the medical record indicates additional documentation may be needed. Please review below and update the documentation accordingly. Clinical Indicators: Nursing notes 07/28 - BMI 35.3 Class II Obese Other Clinical Notes Supporting Significance of the BMI: If possible, please provide an associated diagnosis related to the abnormal BMI, such as: Overweight Obesity Due to excess calories Obesity Due to other cause Specify the other cause BMI is not significant Other (explain) Clinically unable to determine (explain) Thank you, Audelia Sultana, CCS, CDIS Use of terms such as suspected, likely, concern for, or probable (associated with a specific diagnosi s that is being evaluated, monitored, or treated as if it exists) are acceptable and can be coded in the inpatient se tting, when documented at the time of discharge. Please use your independent medical judgment in providing your response. THIS QUERY IS PART OF THE PERMANENT MEDICAL RECORD
--- NOTE | 2022-07-29 14:41 | PM.EVENT ---
Event Note Date of Service: 07/29/22 Event Note: Seen postop Underwent laparoscopic cholecystectomy for gallbladder hydrops, acute cholecystitis earlier Appears to have adequate pain control Says she is sore on incision Dressings dry Stable vital signs Pain management Likely able to DC home tomorrow at bedside Time Spent With Patient Time: Total time managing care of this patient today ____ minutes.
[2022-07-29] MEDS: oxyCODONE HCl Immed Release 5 MG TABLET 10 MG PO (16:22)
[2022-07-30] MEDS: oxyCODONE HCl Immed Release 5 MG TABLET PO ×2 (01:05→09:02)
[2022-07-30 03:34] VITALS: BP 100/56; PULSE 65; RESP 18; TEMP 36.3; O2SAT 97
[2022-07-30] MEDS: Morphine Sulfate 4 MG/ML CARTRIDGE 3 MG IVPUSH (05:57)
[2022-07-30] MEDS: Levothyroxine Sodium 88 MCG TABLET PO (05:57)
[2022-07-30] MEDS: 0.9 % Sodium Chloride 1,000 ML 80 ML IVCONT (05:59)
--- NOTE | 2022-07-30 08:21 | P.PNGS_ITS ---
Subjective Subjective Date of Service: 07/30/22 Interval history: feels well says she is ready to go home tolerating diet Physical Exam Vital Signs: Vital Signs: Last Vital Signs Temp 97.3 F 07/30/22 03:34 Pulse 65 07/30/22 03:34 Resp 18 07/30/22 03:34 BP 100/56 L 07/30/22 03:34 Pulse Ox 97 07/30/22 03:34 O2 Del Method 07/30/22 03:34 O2 Flow Rate 1 07/29/22 11:15 BMI result Body Mass Index 35.2 Const: General: comfortable and no acute distress Eyes: Sclerae: sclerae normal Resp: Effort & Inspection: normal respiratory effort Cardio: Rhythm: regular rhythm GI: Other: dressings dry, tenderness appropriate to postop Palpation (GI): Soft to palpation, not firm and no guarding Objective Data Active Medications Acetaminophen (Acetaminophen 325 Mg Tablet) 650 mg PO Q6H PRN PRN Reason: fever, pain Sodium Chloride (Ns) 1,000 mls @ 80 mls/hr IVCONT .[id number] [facility] Last Admin: 07/30/22 05:59 Dose: 80 mls/hr Documented By: LEE Promethazine HCl 12.5 mg/ (Sodium Chloride) 50.5 mls @ 202 mls/hr IV ONCE PRN PRN Reason: Nausea and Vomiting Levothyroxine Sodium (Levothyroxine Sodium 88 Mcg Tablet) 88 mcg PO DAILY@0600 [facility] Last Admin: 07/30/22 05:57 Dose: 88 mcg Documented By: LEE Morphine Sulfate (Morphine Sulfate 4 Mg/Ml Cartridge) 3 mg IVPUSH Q3H PRN; Protocol PRN Reason: Pain, Severe (Pain Scale 7-10) Last Admin: 07/30/22 05:57 Dose: 3 mg Documented By: LEE Ondansetron HCl (Ondansetron Hcl 4 Mg/2 Ml Vial) 4 mg IVPUSH Q6H PRN PRN Reason: Nausea and Vomiting Last Admin: 07/29/22 03:34 Dose: 4 mg Documented By: CARMEN Oxycodone HCl (Oxycodone Hcl Immed Release 5 Mg Tablet) 5 mg PO Q6H PRN PRN Reason: Pain, Severe (Pain Scale 7-10) Last Admin: 07/30/22 01:05 Dose: 5 mg Documented By: LEE Oxycodone HCl (Oxycodone Hcl Immed Release 5 Mg Tablet) 10 mg PO Q4H PRN PRN Reason: Pain, Severe (Pain Scale 7-10) Last Admin: 07/29/22 16:22 Dose: 10 mg Documented By: MEAGHAN Pharmacy Consult (Consult Rx Perform Med Rec) 1 each MISCELLANE ONCE PRN PRN Reason: Consult order Sodium Chloride (0.9 % Sodium Chloride Flush 3 Ml Syringe) 3 ml IVFLUSH [facility]SHIFT [facility] Last Admin: 07/29/22 22:22 Dose: Not Given Documented By: LEE Non-Admin Reason: IV Running Spironolactone (Spironolactone 25 Mg Tablet) 100 mg PO DAILY [facility]; Protocol Labs 07/29/22 05:36 07/28/22 09:27 Procedures Date of Service Date of Service: 07/30/22 Progress Note: A&P Assessment and plan (1) Acute cholecystitis: Status: Acute Assessment and Plan: S/P lap tracy doing well good GI function pain level appropriate she feels ready to be discharged dc instructions reinforced ffup in office wound care explained Time Spent With Patient Time: Total time managing care of this patient today ____ minutes. Quality Stroke Does the patient have a stroke diagnosis?: No VTE Prior VTE?: No VTE Risk Level:: Medical - low VTE Device Contraindication: N/A - Device Ordered VTE Drug Contraindication: Treatment Not Indicated
--- NOTE | 2022-07-30 08:54 | MHC.CM.PN ---
PATIENT IS DC TODAY HOME -SELF CARE IS IN ROOM TO [employer] TECHNICIAN AWARE OF PLAN
[2022-07-30] MEDS: Spironolactone 25 MG TABLET 100 MG PO (09:02)
--- NOTE | 2022-07-30 12:55 | HO.POSTANES ---
Post Anesthesia Evaluation Post Anesthesia Evaluation Vital Signs: Vital Signs Temp Pulse Resp BP Pulse Ox O2 Del Method 07/30/22 03:34 97.3 F 65 18 100/56 L 97 Room Air Anesthesia: General Endotracheal-GETA Mental Status: Awake Pain Control: Satisfactory Nausea/Vomiting: None Hydration: Adequate Anesthesia-Related Issues: No Anes. Related Issues
--- NOTE | 2022-08-01 13:53 | PM.DS ---
DS: Providers Provider Date of Service: 07/30/22 Date of admission: 07/28/22 13:04 Date of discharge: 07/30/22 Primary care physician: Julian Wood III, MD Attending physician on admission: Brain Roca Attending physician on discharge: Brain Roca DS: Diagnosis Discharge Diagnosis (1) Acute cholecystitis: Status: Acute DS: Summary Hospital Course Hospital Course: HPI AT ADMISSION: Nguyen Travis is a 27 year old female who came to the ED early this morning for abdominal pain. She says this started arounf 3 pm afternoon. She describes this as being in the epigastric area. She says she had a few episodes of vomitting until last night. Her last episode of vomiting was at 11 pm. She says she actually feels much better today. She still describes mild epigatric pain. Work up in the ED included US and CT which showed mild thickening of the GB wall c/w acute cholecystitis and her US shows a stone in the neck. HOSPITAL COURSE: She did not feel improved following analgesics and admission was recommended. She was admitted to the surgical service for further treatment of acute cholecystitis. It was recommended to proceed with laparoscopic cholecystectomy possible open as treatment. She was added onto the OR schedule for the following day. On 07/29/22, a laparoscopic cholecystectomy was performed by Dr. Roca without complication. The patient tolerated the procedure well. The patient had an uncomplicated recovery course. On POD #1, she felt well and was tolerating a solid diet. Her pain was well controlled. She had a benign abd exam with clean and intact dressings. She felt ready for discharge. She was discharged to home in stable condition on 07/30/22. She is to follow up in the office in 2 weeks. Status at Discharge Functional status at discharge: independent ambulation Overall status at discharge: patient is progressing back to baseline Time Spent with Patient Time attestation: Total time managing care of this patient today ____ minutes. Discharge coordination time: Less than 30 minutes Quality: Safe Use of Opioids Does Pt have an Active Cancer Diagnosis on the Problem List?: No Quality: Stroke Does the patient have a stroke diagnosis?: No Physical Exam Vital Signs: Vital Signs: Last Vital Signs Temp 97.3 F 07/30/22 03:34 Pulse 65 07/30/22 03:34 Resp 18 07/30/22 03:34 BP 100/56 L 07/30/22 03:34 Pulse Ox 97 07/30/22 03:34 O2 Del Method 07/30/22 03:34 O2 Flow Rate 1 07/29/22 11:15 BMI result Body Mass Index 35.2 Const: General: comfortable, no acute distress and alert Orientation/consciousness: patient oriented x3 Resp: Effort & Inspection: normal respiratory effort GI: Inspection: No distended and Yes incision (dressings c/d/i) Palpation (GI): Soft to palpation, Tenderness to palpation present (GI) (mild incisional), no guarding and not rigid Percussion: Yes normal to percussion Skin: General skin exam: no rashes or lesions noted Neuro: General: patient oriented x3 and moves all extremities DS: Data Data Completed and Pending Completed studies during hospitalization [Text1]: 07/29/22 10:30 Surgical [PTH] Routine Gallbladder, cholecystectomy: Acute and chronic cholecystitis with focal mucosal erosion, necrosis and reactive changes; cholelithiasis. Procedures Resection of Gallbladder, Percutaneous Endoscopic Approach (07/28/22) Discharge Plan Discharge Anticipated Discharge Date/Time: 07/29/22 15:41 Patient Disposition: Home, Self-Care Discharge Diagnosis: s/p laparoscopic cholecystectomy Referrals: Julian Wood III, MD [Primary Care Provider] - 1 Week Brain Roca MD [Physician] - 2 Weeks Discharge Medications: New oxycodone 5 mg tablet 5 mg PO Q4H PRN (Reason: pain (scale score 7-10)) Qty: 24 0RF Rx Instructions: Partial Fill upon patient request. ibuprofen 600 mg tablet 600 mg PO Q6H PRN (Reason: pain) Qty: 30 0RF Continued spironolactone 100 mg tablet 1 tab PO DAILY levothyroxine 88 mcg tablet 88 mcg PO DAILY drospirenone-ethinyl estradiol [Brie (28)] 3-0.02 mg tablet 1 tab PO DAILY Discharge Orders: Discharge Order (Routine); Ordered 07/30/22 Ordered By: Ashlie Villarreal Diet: Low fat, low cholesterol Activity on Discharge: No heavy lifting Stand Alone Forms: Patient Portal Discharge page Activity Restrictions/Additional Instructions: If the incision area is tender, you may apply an ice pack for short intervals (No more than 20 minutes on, followed by at least 20 minutes off). Do not apply heat. Do not use creams, lotions, or topical antibiotics unless instructed to do so by your surgeon. These can cause infection or allergic reaction. Ok to shower 24 hours after your surgery. Remove bandaids in 2 days and replace. You have steri strips (small white cloth strips) covering your incision- these will fall off ~1 week. Follow up in office with Dr. Roca in 2 weeks. ([phone]) No heavy lifting (>10-20lbs) or strenuous activity! Call Your Doctor If: -Your temperature exceeds 101.5? F -You experience excessive pain or swelling -You have an unexpected reaction to medication -You have excessive bleeding -You experience continued vomiting/nausea -Your incision begins to separate -Your incision shows signs of infection such as increased redness, swelling, excessive pain, drainage (light blood or clear fluid is normal) or heat Care Plan Goals: Return to baseline health and gradual return to activity following recovery period. Health Concerns: acute cholecystitis Plan of Treatment: s/p laparoscopic cholecystectomy Pain control F/u in office in 2 weeks Assessment: Doing well post op Discharge Date/Time: 07/30/22 09:47
== END 2022-07-30 09:47 | disposition home or self-care (01) | DRG 263 ==
LOC: HO.ED 13:14 → HO.EDOVER 13:39 → HO.S3 16:47
PROVIDERS: Physician Assistant Medical; Admitting Provider Surgery; Emergency Provider Emergency Medicine; PCP Internal Medicine; Visit Provider Surgery
PROC: 0FT44ZZ Resection of Gallbladder, Percutaneous Endoscopic Approach (ICD-10-PCS; CPT 47562; principal; 2022-07-29 11:50)
DX: K80.00 Calculus of gallbladder with acute cholecystitis without obstruction (principal); K82.1 Hydrops of gallbladder; E66.01 Morbid (severe) obesity due to excess calories; Z68.35 Body mass index [BMI] 35.0-35.9, adult; Z20.822 Contact with and (suspected) exposure to COVID-19; Z79.3 Long term (current) use of hormonal contraceptives; Z79.890 Hormone replacement therapy; Z79.899 Other long term (current) drug therapy
CPT/HCPCS: 47562; 0241U; 36415; 74177; 76700; 80048; 80076; 81003; 82947; 83690; 83735; 84702; 85025; 85027; 88304; 96361; 96374; 96375; 99285; J0131; J1100; J1885; J2250; J2270; J2405; J2543; J2550; J2795; J3010; Q9967

== ENCOUNTER → 2022-08-20 13:10 | Outpatient (BNVA) | payer OTHER, SELFPAY | PROVIDERS: PCP Internal Medicine; Visit Provider Surgery | DX: K81.0 Acute cholecystitis (principal) | CPT/HCPCS: 99212 ==

== ENCOUNTER 2023-04-19 19:26 | Emergency (ER) | payer OTHER, SELFPAY ==
--- NOTE | 2023-04-19 | ECG_ITS ---
Test Reason : CHEST PAIN Blood Pressure : / mmHG Vent. Rate : 120 BPM Atrial Rate : 120 BPM P-R Int : 184 ms QRS Dur : 070 ms QT Int : 316 ms P-R-T Axes : 050 056 040 degrees QTc Int : 446 ms Sinus tachycardia Nonspecific T wave abnormality Inferior leads Abnormal ECG When compared with ECG of 03-MAR-2017 19:02, Vent. rate has increased BY 63 BPM T wave amplitude has decreased in Inferior leads Referred By: Generic ED Physician Electronically Signed By:RENNY BERRY MD
--- NOTE | ~2023-04-19 | XR_ITS ---
EXAMINATION: XR CHEST CLINICAL INFORMATION: Pain and shortness of breath COMPARISON: 03/03/2017 TECHNIQUE: Frontal view of the chest was obtained. FINDINGS: No significant abnormality is noted involving the heart, lungs, mediastinum, bony thorax or soft tissues. XR/XR chest 1V IMPRESSION: Unremarkable examination.
[2023-04-19 20:02] VITALS: BP 125/77; PULSE 126; RESP 18; TEMP 38.1; O2SAT 98; BMI 34.3
[2023-04-19 21:10] LABS: Influenza A PCR NEGATIVE (Negative); Influenza B PCR NEGATIVE (Negative); Resp Syncy Virus RNA Qual PCR NEGATIVE (Negative); SARS COV2 PCR INHOUSE NEGATIVE (Negative)
[2023-04-19] MEDS: Acetaminophen 325 MG TABLET 975 MG PO (21:26)
[2023-04-19 23:07] VITALS: BP 115/72; PULSE 99; RESP 27; TEMP 37.7; O2SAT 97
--- NOTE | 2023-04-19 23:11 | ED.GENADULT ---
HPI - General Adult General Chief complaint: Upper Respiratory Symptoms Stated complaint: flu like symptoms/chest pain/breath shortage Time Seen by Provider: 04/19/23 22:56 Source: patient Mode of arrival: ambulatory Limitations: no limitations History of Present Illness HPI narrative: patient comes to the emergency room complaining of 24 hours of flu-like symptoms. Patient complaining of fever for 24 hours. patient states that she has a combination of back pain especially with movement. Patient denies sore throat, no ear pain, no abdominal pain, denies UTI symptoms Related Data Home Medications Medication Instructions Recorded Confirmed drospirenone 3 mg-ethinyl 1 tab PO DAILY 07/28/22 07/28/22 estradiol 0.02 mg tablet (Brie (28)) levothyroxine 88 mcg tablet 88 mcg PO DAILY 07/28/22 07/28/22 spironolactone 100 mg tablet 1 tab PO DAILY 07/28/22 07/28/22 Previous Rx's Medication Instructions Recorded ibuprofen 600 mg tablet 600 mg PO Q6H PRN pain #30 tabs 07/29/22 oxycodone 5 mg tablet 5 mg PO Q4H PRN pain (scale score 07/29/22 7-10) #24 tabs acetaminophen 500 mg tablet 500 mg PO Q6H PRN fever or pain 04/19/23 #10 tabs ibuprofen 600 mg tablet 600 mg PO Q8H PRN fever or pain 04/19/23 #14 tabs Allergies Allergy/AdvReac Type Severity Reaction Status Date / Time No Known Allergies Allergy Verified 08/20/22 13:18 [No Known Allergies*] Review of Systems Review of Systems: Constitutional : No Weight loss, complaining of fever and chillsNo Night Sweats, No Fatigue, No Malaise ENT/Mouth : No Hearing loss, No Ear Pain, No Nasal Congestion, No Sinus Pain, No Hoarseness, No sore throat, No Rhinorrhea, No Swallowing Difficulty Eyes: No Eye Pain, No Swelling, No Redness, No Foreign Body, No Discharge, No Vision Changes Cardiovascular : No Chest Pain, No SOB, No Dyspnea on Exertion, No Orthopnea, No Edema, No Palpitations Respiratory : No Cough, No Sputum, No Wheezing, No Smoke Exposure, No Dyspnea Gastrointestinal : No Nausea, No Vomiting, No Diarrhea, No Constipation, No abdominal Pain, No Hematochezia, No Melena Genitourinary : no irregular bleeding, No Dysuria, No Urinary Frequency, No Hematuria, No Urinary Incontinence, No Urgency, No Flank Pain, No Urinary Flow Changes, No Hesitancy Musculoskeletal : No joint pain, No Myalgias, No Joint Swelling Skin : No Skin Lesions, No rash Neuro : No Weakness, No Numbness, No Paresthesias, No Loss of Consciousness, No Dizziness, No Headache Psych : No Anxiety/Panic, No Depression, No SI/HI/AH/VH, No Social Issues, Heme/Lymph: No Bruising, No Bleeding,No Lymphadenopathy Endocrine : No Polyuria, No Polydipsia, No Temperature Intolerance [facility] Past Medical History Medical History Acute cholecystitis Thyroid disease Social History Social History Household Members: Family Housing: Apartment Do you presently have visiting nurse or other home services: No Alcohol intake: never Patient Tobacco Use Status: Never used Tobacco service: No Current occupational status: employed Physical Exam ED Vital Signs: Vital Signs - 24 hr 04/19/23 20:02 04/19/23 23:07 Temperature 100.6 F H 99.8 F Pulse Rate 126 H 99 Respiratory Rate 18 27 H Blood Pressure 125/77 115/72 Pulse Oximetry 98 97 Oxygen Delivery Method Room Air Room Air BMI result Body Mass Index 34.3 Const Other: Appearance: Alert. Oriented X3. No acute distress. Eyes: Pupils equal, round and reactive to light. ENT: Pharynx normal. Neck: Normal inspection. Neck supple. No lymph nodes noted. No crepitus CVS: Normal heart rate and rhythm. Pulses normal. Normal S1 and S2 Respiratory: No respiratory distress. Breath sounds normal. No Wheezing. No rales Abdomen: Soft and nontender. No rigidity. No distention. Skin: Skin warm and dry. Normal skin color. Normal skin turgor. Extremities: No lower extremity edema. No Lacerations. No Rash Neuro: Oriented X 3. No motor deficit. No sensory deficit. Moving all extremities. No slurred speech. CN 2 through 12 grossly intact Psych: calm, cooperative, normal affect Medications Administered Discontinued Medications Generic Name Dose Route Start Last Admin Trade Name Freq PRN Reason Stop Dose Admin Acetaminophen 975 mg 04/19/23 21:23 04/19/23 21:26 Acetaminophen 325 Mg Tablet PO 04/19/23 21:24 975 mg ONCE ONE Administration Medical Decision Making Medical Decision Making [facility] Narrative: - my interpretation of labs: Patient tested negative for COVID, influenza, RSV. - My interpretation of chest x-ray: No pneumonia - discussed with the patient she likely has a viral syndrome - once fever decreased, heart rate became normal Differential Diagnosis Differential Diagnoses: The differential diagnosis associated with the presentation includes ( influenza, COVID, RSV, viral syndrome) Lab Data [facility] Lab Attestation statement: I reviewed the patient's lab results. Labs: Lab Results 04/19/23 Range/Units 20:25 Influenza Type A (PCR) NEGATIVE (Negative) Influenza Type B (PCR) NEGATIVE (Negative) RSV RNA Qual (PCR) NEGATIVE (Negative) SARS-CoV-2 RNA (RT-PCR) NEGATIVE (Negative) Independent Interpretation I performed an independent interpretation of an: Plain X-Ray Radiology Impression Discussion of test interpretation with radiology: I have reviewed the radiologist's reading. Radiologist Impression: FINDINGS: No significant abnormality is noted involving the heart, lungs, mediastinum, bony thorax or soft tissues. XR/XR chest 1V IMPRESSION: Unremarkable examination. Discharge Plan Discharge Clinical Impression: Acute viral syndrome Patient Disposition: Home, Self-Care Instructions: Viral Syndrome (ED) Additional Instructions: Please follow-up with your primary care physician tomorrow. If you have any worsening or new symptoms, please return to the emergency room or call 911 Prescriptions: New ibuprofen 600 mg tablet 600 mg PO Q8H PRN (Reason: fever or pain) Qty: 14 0RF acetaminophen 500 mg tablet 500 mg PO Q6H PRN (Reason: fever or pain) Qty: 10 0RF No Action spironolactone 100 mg tablet 1 tab PO DAILY levothyroxine 88 mcg tablet 88 mcg PO DAILY drospirenone-ethinyl estradiol [Brie (28)] 3-0.02 mg tablet 1 tab PO DAILY oxycodone 5 mg tablet 5 mg PO Q4H PRN (Reason: pain (scale score 7-10)) Qty: 24 0RF Rx Instructions: Partial Fill upon patient request. ibuprofen 600 mg tablet 600 mg PO Q6H PRN (Reason: pain) Qty: 30 0RF Stand Alone Forms: Work/School Release
[2023-04-19] MEDS: Ibuprofen 600 MG TABLET PO (23:15)
== END 2023-04-19 23:46 | disposition home or self-care (01) ==
PROVIDERS: Emergency Provider Emergency Medicine; PCP Internal Medicine
DX: B34.9 Viral infection, unspecified (principal); R07.89 Other chest pain; R00.0 Tachycardia, unspecified; M54.50 Low back pain, unspecified; Z20.822 Contact with and (suspected) exposure to COVID-19; Z20.828 Contact with and (suspected) exposure to other viral communicable diseases; Z79.899 Other long term (current) drug therapy
CPT/HCPCS: 0241U; 71045; 93005; 99285